=== PATIENT | female | born 1970 | race Two or more races ===

== ENCOUNTER 2019-04-04 09:27 | Emergency (ER) | payer OTHER ==
[~2019-04-04] VITALS: Ht 152.4 cm; Wt 122.5 kg
--- NOTE | 2019-04-04 09:27 | NUR ---
PT BIB [facility] 41 FROM HOME,WORSENING ALLERGIC REACTION SINCE YESTERDAY AFTER [facility] ADMINISTRATION, PT IS AAOX4, NOT IN RESPIRATORY DISTRESS, HOOKED TO MONITOR, KEPT RESTED AND COMFORTABLE, WILL CONTINUE TO MONITOR.
--- NOTE | 2019-04-04 09:33 | NUR ---
AT BEDSIDE FOR EVAL.
[2019-04-04] MEDS ORDERED: IV NS 0.9% 1,000 ML IV ONE ×2 (09:38→10:38)
--- NOTE | 2019-04-04 09:45 | NUR ---
IV LINE ESTABLISHED, BLOOD DRAWNED AND SENT TO LAB.
[2019-04-04] MEDS ORDERED: diphenhydrAMINE HCL 50 MG/ML VIAL ONE (09:46)
[2019-04-04] MEDS ORDERED: FAMOTIDINE/PF INJ 20 MG/2 ML VIAL IV ONE ×2 (09:46→10:00)
[2019-04-04] MEDS ORDERED: methylPREDNISolone SOD SUCC 125 MG/2ML VIAL ONE (09:46)
[2019-04-04 09:59] LABS: BASOPHILS # (AUTO) 0.1 /CMM (0.0-0.2); BASOPHILS % (AUTO) 0.5 % (0.0-2.0); EOSINOPHILS % (AUTO) 1.1 % (0.0-6.0); HEMATOCRIT 42 % (33-45); HEMOGLOBIN 14.1 g/dL (11.5-14.8); LYMPHOCYTES # (AUTO) 2.2 /CMM (0.8-4.8); MEAN CORPUSCULAR HGB CONC 34 g/dl (31.0-36.0); MEAN CORPUSCULAR VOLUME 84 fL (82-100); MONOCYTES # (AUTO) 0.9 /CMM (0.1-1.30); MONOCYTES % (AUTO) 6.3 % (2.0-12.0); NEUTROPHILS # (AUTO) 10.2 /CMM (1.8-8.9); NEUTROPHILS % (AUTO) 76.1 % (43.0-81.0); PLATELET COUNT (AUTO) 335 /CMM (150-450); RED BLOOD CELL COUNT(AUTO) 4.99 MIL/uL (4.0-5.2); WHITE BLOOD COUNT (AUTO) 13.5 K/uL (4.3-11.0)
[2019-04-04] MEDS ORDERED: methylPREDNISolone SOD SUCC 125 MG/2ML VIAL IV ONE (10:00)
[2019-04-04] MEDS ORDERED: diphenhydrAMINE HCL 50 MG/ML VIAL IV ONE (10:00)
--- NOTE | 2019-04-04 10:00 | NUR ---
CAPACITOR REPAIRER AT BEDSIDE FOR XRAY.
[2019-04-04] MEDS ORDERED: INSU100I34 IJ (10:21)
[2019-04-04] MEDS ORDERED: ASPI-1152 PO (10:21)
[2019-04-04] MEDS ORDERED: LORA0.5T PO (10:21)
[2019-04-04] MEDS ORDERED: ERGO500040 PO (10:21)
[2019-04-04] MEDS ORDERED: OMEP40CA37 PO (10:21)
[2019-04-04] MEDS ORDERED: METF-442 PO (10:21)
[2019-04-04] MEDS ORDERED: INSU100I26 IJ (10:21)
[2019-04-04] MEDS ORDERED: FURO40TA5 PO (10:21)
[2019-04-04] MEDS ORDERED: CLOP75TA15 PO (10:21)
[2019-04-04] MEDS ORDERED: ALBU2.5V38 IH (10:21)
[2019-04-04] MEDS ORDERED: METO50TA16 PO (10:21)
[2019-04-04] MEDS ORDERED: ATOR40TA PO (10:21)
[2019-04-04] MEDS ORDERED: GLIM2TAB2 PO (10:21)
[2019-04-04 10:35] LABS: CALCIUM, SERUM 9.3 mg/dL (8.5-10.1); CREATININE 0.7 mg/dL (0.6-1.3); POTASSIUM 4.1 mmol/L (3.5-5.1)
[2019-04-04 10:41] LABS: ALBUMIN 3.1 g/dL (3.4-5.0); BILIRUBIN,DIRECT 0.1 mg/dL (0.0-0.2); BILIRUBIN,TOTAL 0.3 mg/dL (0.2-1.0); TOTAL PROTEIN, SERUM 7.5 g/dL (6.4-8.2)
--- NOTE | 2019-04-04 14:03 | NUR ---
AWAITING CALL BACK FROM [facility] FOR ROOM AVAILABILITY.
--- NOTE | 2019-04-04 15:53 | NUR ---
[facility] ETA 45-60 MINS.
--- NOTE | 2019-04-04 16:20 | NUR ---
REPORT GIVEN TO YAJAIRA BEASLEY FOR [facility] IN [facility].
[2019-04-04 17:57] VITALS: BP 134/82
--- NOTE | 2019-04-04 17:58 | NUR ---
REPORT GIVEN TO EMT FOR PT TRANSFER TO [facility].
== END 2019-04-04 18:20 | disposition short-term general hospital (02) ==
LOC: ER 09:30
DX: T78.3XXA Angioneurotic edema, initial encounter (principal); F17.200 Nicotine dependence, unspecified, uncomplicated; Z79.4 Long term (current) use of insulin; Z95.5 Presence of coronary angioplasty implant and graft; Z79.82 Long term (current) use of aspirin
CPT/HCPCS: 36415; 71045; 80048; 80076; 85025; 85730; 87081; 93005; 96374; 96375; 99285; 99406; J1200; J2930; J3490; J7030

== ENCOUNTER 2020-11-07 12:12 | Emergency (ER) | payer OTHER ==
[~2020-11-07] VITALS: Ht 152.4 cm; Wt 120.2 kg
[~2020-11-07 12:12] MED LIST: ALBU2.5V38 IH; ASPI-1420 PO; ATOR40TA PO; CLOP75TA15 PO; ERGO500040 PO; FURO40TA5 PO; GLIM2TAB31 PO; INSU100I26 IJ; INSU100I34 IJ; LORA0.5T PO; METF-442 PO; METO50TA16 PO; OMEP40CA13 PO
--- NOTE | 2020-11-07 12:20 | NUR ---
TOM SAUCEDO From Home "Abdominal Pain/nausea/vomiting started yesterday". On room air, breathing evenly and unlabored. Connected to the monitor and pulse ox. kept comfortable, will continue to monitor accordingly.
[2020-11-07] MEDS ORDERED: ONDANSETRON HCL/PF 4 MG/2 ML VIAL ONE (12:28)
[2020-11-07] MEDS ORDERED: MORPHINE SULFATE INJ 4 MG/ML DISP.SYRIN ONE (12:28)
[2020-11-07] MEDS ORDERED: ONDANSETRON HCL/PF 4 MG/2 ML VIAL IVP ONE (12:30)
[2020-11-07] MEDS ORDERED: MORPHINE SULFATE INJ 2 MG/ML DISP.SYRIN IV ONE (12:30)
[2020-11-07] MEDS ORDERED: IV NS 0.9% 1,000 ML BAG IV ONE (12:30)
[2020-11-07 12:52] LABS: BASOPHILS # (AUTO) 0.1 /CMM (0.0-0.2); BASOPHILS % (AUTO) 0.7 % (0.0-2.0); EOSINOPHILS % (AUTO) 0.6 % (0.0-6.0); HEMATOCRIT 48 % (33-45); HEMOGLOBIN 16.2 g/dL (11.5-14.8); LYMPHOCYTES # (AUTO) 2.2 /CMM (0.8-4.8); LYMPHOCYTES % (AUTO) 21.3 % (20.0-44.0); MEAN CORPUSCULAR HGB CONC 34 g/dl (31.0-36.0); MEAN CORPUSCULAR VOLUME 86 fL (82-100); MONOCYTES # (AUTO) 0.6 /CMM (0.1-1.30); MONOCYTES % (AUTO) 5.7 % (2.0-12.0); NEUTROPHILS # (AUTO) 7.3 /CMM (1.8-8.9); NEUTROPHILS % (AUTO) 71.7 % (43.0-81.0); PLATELET COUNT (AUTO) 393 /CMM (150-450); RED BLOOD CELL COUNT(AUTO) 5.62 MIL/uL (4.0-5.2); WHITE BLOOD COUNT (AUTO) 10.1 K/uL (4.3-11.0)
[2020-11-07 12:53] LABS: BILIRUBIN,URINE SMALL (NEGATIVE); COLOR,URINE DARK YELLOW (YELLOW); LEUKOCYTE ESTERASE ,URINE Negative (NEGATIVE); NITRITE, URINE Positive (NEGATIVE); PH,URINE 6.5 (5.0-8.0); PROTEIN,URINE 100 mg/dl (NEGATIVE); UGLUCOSE >=1000 mg/dL (NEGATIVE)
[2020-11-07] MEDS ORDERED: GABA-532 PO (12:53)
--- NOTE | 2020-11-07 12:57 | NUR ---
IV access initiated, blood drawned and sent to lab.
--- NOTE | 2020-11-07 12:57 | NUR ---
urine collected and sent to lab
[2020-11-07 13:07] LABS: RBC,URINE 21-50 /HPF (0-2)
[2020-11-07 13:08] LABS: BACTERIA,URINE 2+ /HPF (None Seen); SQUAMOUS EPITHELIAL CELL,UR Few /HPF (None Seen)
[2020-11-07 13:21] LABS: ALANINE AMINOTRANSFERASE 33 U/L (12-78); ALBUMIN 3.4 g/dL (3.4-5.0); ALKALINE PHOSPHATASE 114 U/L (46-116); ASPARTATE AMINOTRANSFERASE 19 U/L (15-37); BILIRUBIN,DIRECT 0.1 mg/dL (0.0-0.2); BILIRUBIN,TOTAL 0.4 mg/dL (0.2-1.0); CALCIUM, SERUM 8.8 mg/dL (8.5-10.1); CARBON DIOXIDE 31 mmol/L (21-32); CHLORIDE 94 mmol/L (98-107); CREATININE 0.7 mg/dL (0.6-1.3); LIPASE 179 U/L (73-393); POTASSIUM 4.4 mmol/L (3.5-5.1); SODIUM SERUM 131 mmol/L (136-145); UREA NITROGEN, BLOOD 11 mg/dL (7-18)
[2020-11-07 13:24] LABS: GLUCOSE 367 mg/dL (74-106)
--- NOTE | 2020-11-07 13:25 | NUR ---
CLAIMS EXAMINER AT BEDSIDE FOR ULTRASOUND
[2020-11-07] MEDS ORDERED: CEFTRIAXONE 1GM BAG (ER ONLY) 50 ML IV ONE (13:50)
[2020-11-07] MEDS ORDERED: CEFTRIAXONE 1 G in IV D5W 50 ML IV ONE (14:00)
--- NOTE | 2020-11-07 14:23 | NUR ---
wheeled patient via gurney accompanied by [facility] for ct
[2020-11-07] MEDS ORDERED: diphenhydrAMINE HCL 50 MG/ML VIAL ONE (14:28)
[2020-11-07] MEDS ORDERED: diphenhydrAMINE HCL 50 MG/ML VIAL IV ONE (14:30)
[2020-11-07] MEDS ORDERED: ONDA4TAB5 PO (15:14)
[2020-11-07] MEDS ORDERED: CIPR-262 PO (15:14)
[2020-11-07 15:27] VITALS: BP 145/81
--- NOTE | 2020-11-07 15:27 | NUR ---
Patient discharged to home in stable condition. Written and verbal after care instructions given. Patient verbalizes understanding of instruction.IV removed. Catheter intact and site benign. Pressure and 4x4 applied to site. No bleeding noted.
== END 2020-11-07 15:27 | disposition home or self-care (01) ==
LOC: ER 12:13
DX: N39.0 Urinary tract infection, site not specified (principal); R10.13 Epigastric pain; R11.10 Vomiting, unspecified; E11.65 Type 2 diabetes mellitus with hyperglycemia; I10 Essential (primary) hypertension; Z79.899 Other long term (current) drug therapy; Z79.82 Long term (current) use of aspirin; Z79.84 Long term (current) use of oral hypoglycemic drugs
CPT/HCPCS: 36415; 71045; 74176; 76705; 80048; 80076; 81001; 82962; 83690; 84484; 85025; 87086; 93005 ×2; 96361; 96365; 96372; 96375; 99285; J0696 ×2; J1200; J2270; J2405; J7030; J7060; 87186-TC